=== PATIENT | female | born 1970 | race Caucasian/White ===

== ENCOUNTER 2018-02-15 17:17 | Inpatient (IN) | payer SELFPAY ==
[2018-02-15] MEDS ORDERED: Haloperidol TAB* 5 MG PO ONE (17:28)
[2018-02-15] MEDS ORDERED: LORazepam TAB(*) 1 MG PO ONE (17:28)
[2018-02-15 17:54] LABS: ABS Basophils 0 10^3/ul (0-0.2); ABS Eosinophils 0.1 10^3/ul (0-0.6); ABS Lymphocytes 1.2 10^3/ul (1.0-4.8); ABS Monocytes 0.5 10^3/ul (0-0.8); ABS Neutrophils 5.3 10^3/ul (1.5-7.7); ABS Nucleated RBC 0 10^3/ul; Eosinophil % 1.5 % (0-6); Hematocrit 44 % (35-47); Hemoglobin 14.8 g/dl (12.0-16.0); Lymphocyte % 16.8 % (25-47); Mean Corpuscular HGB Conc 34 g/dl (31-36); Mean Corpuscular Hemoglobin 30 pg (27-31); Mean Corpuscular Volume 88 fL (80-97); Mean Platelet Volume 9.2 um3 (7.4-10.4); Nucleated Red Blood Cells % 0.1; Platelet Count 194 10^3/ul (150-450); Red Blood Count 4.99 10^6/ul (4.0-5.4); Red Cell Distribution Width 14 % (10.5-15); White Blood Count 7.2 10^3/ul (3.5-10.8)
[2018-02-15] MEDS ORDERED: Haloperidol TAB* 5 MG ONE (17:54)
[2018-02-15] MEDS ORDERED: LORazepam TAB(*) 1 MG ONE (17:54)
[2018-02-15 18:10] LABS: EGFR Non-African American 64.1 (>60)
[2018-02-15 18:38] LABS: Urine Appearance Clear; Urine Blood 1+ (Negative); Urine Color Yellow; Urine Ketones Trace (Negative); Urine Protein Negative (Negative); Urine Urobilinogen Negative (Negative)
--- NOTE | 2018-02-16 06:48 | ED ---
Sugey Mesa Thomas, scribed for Yanira Bustos MD on 02/16/18 at 0637 . Progress - Progress Note Progress Note: The patient is a sign out from Dr. Cervantes awaiting re-evaluation in the morning. Course/Dx - Course Course Of Treatment: The patient is signed out to Dr. Olivier in the morning, awaiting re-evaluation. - Diagnoses Provider Diagnoses: Bipolar I disorder with chris Discharge - Sign-Out/Discharge Documenting (check all that apply): Sign-Out Patient, Receiving Sign-Out Signing out patient TO: Erick Olivier Receiving patient FROM: Alexander Cervantes - Discharge Plan Condition: Stable Referrals: Non Staff,Doctor [Primary Care Provider] - The documentation as recorded by the Sugey monroy Thomas accurately reflects the service I personally performed and the decisions made by Akash maciel Abdul, MD.
--- NOTE | 2018-02-16 07:43 | PN ---
ED Flex Patient Progress Note Date of Service: 02/15/18 Subjective: This is a 47 year-old F who is pending admission to [facility] / transfer to another psychiatric facility / discharge to home / or being observed secondary to manic behavior. Pt. examined at 0710. She is resting comfortably. She had an uneventful night. She will be re-evaluated by this morning. Objective: Vitals: Most recent vital signs documented below. General NAD, Alert and oriented x3. Laboratory: Current laboratory results documented below. Assessment: Pending evaluation. Plan: Pending psychiatric or medical consultation to observe / transfer / admit / discharge will follow up daily . Vital Signs Temp Pulse Resp BP Pulse Ox 98.2 F 80 16 123/75 98 02/16/18 06:45 02/16/18 06:45 02/16/18 06:45 02/16/18 06:45 02/16/18 06:45 Lab Results - Entire Visit 02/15/18 02/15/18 02/15/18 18:27 18:23 17:42 WBC RBC Hgb Hct MCV MCH MCHC RDW Plt Count MPV Neut % (Auto) Lymph % (Auto) [place] % (Auto) Eos % (Auto) Baso % (Auto) Absolute Neuts (auto) Absolute Lymphs (auto) Absolute Monos (auto) Absolute Eos (auto) Absolute Basos (auto) Absolute Nucleated RBC Nucleated RBC % Sodium 137 L Potassium 3.7 Chloride 101 Carbon Dioxide 27 Anion Gap 9 BUN 11 Creatinine 0.94 Est GFR ( Amer) 82.4 Est GFR (Non-Af Amer) 64.1 BUN/Creatinine Ratio 11.7 Glucose 104 H Calcium 9.0 Total Bilirubin 0.80 AST 15 ALT 13 Alkaline Phosphatase 65 Total Protein 7.5 Albumin 4.3 Globulin 3.2 Albumin/Globulin Ratio 1.3 TSH 3.46 Urine Color Yellow Urine Appearance Clear Urine pH 6.0 Ur Specific [place] 1.010 Urine Protein Negative Urine Ketones Trace A Urine Blood 1+ A Urine Nitrate Negative Urine Bilirubin Negative Urine Urobilinogen Negative Ur Leukocyte Esterase Negative Urine WBC (Auto) Trace(0-5/hpf) Urine RBC (Auto) Absent Ur Squamous Epith Cells Present A Urine Bacteria Absent Urine Glucose Negative Salicylates < 2.50 Urine Opiates Screen None detected Acetaminophen < 15 Ur Barbiturates Screen None detected Ur Phencyclidine Scrn None detected Ur Amphetamines Screen None detected U Benzodiazepines Scrn None detected Urine Cocaine Screen None detected U Cannabinoids Screen None detected Serum Alcohol < 10 02/15/18 17:42 WBC 7.2 RBC 4.99 Hgb 14.8 Hct 44 MCV 88 MCH 30 MCHC 34 RDW 14 Plt Count 194 MPV 9.2 Neut % (Auto) 74.4 Lymph % (Auto) 16.8 L [place] % (Auto) 6.8 Eos % (Auto) 1.5 Baso % (Auto) 0.5 Absolute Neuts (auto) 5.3 Absolute Lymphs (auto) 1.2 Absolute Monos (auto) 0.5 Absolute Eos (auto) 0.1 Absolute Basos (auto) 0 Absolute Nucleated RBC 0 Nucleated RBC % 0.1 Sodium Potassium Chloride Carbon Dioxide Anion Gap BUN Creatinine Est GFR ( Amer) Est GFR (Non-Af Amer) BUN/Creatinine Ratio Glucose Calcium Total Bilirubin AST ALT Alkaline Phosphatase Total Protein Albumin Globulin Albumin/Globulin Ratio TSH Urine Color Urine Appearance Urine pH Ur Specific [place] Urine Protein Urine Ketones Urine Blood Urine Nitrate Urine Bilirubin Urine Urobilinogen Ur Leukocyte Esterase Urine WBC (Auto) Urine RBC (Auto) Ur Squamous Epith Cells Urine Bacteria Urine Glucose Salicylates Urine Opiates Screen Acetaminophen Ur Barbiturates Screen Ur Phencyclidine Scrn Ur Amphetamines Screen U Benzodiazepines Scrn Urine Cocaine Screen U Cannabinoids Screen Serum Alcohol
--- NOTE | 2018-02-16 13:28 | ED ---
Izaiah Mesa Angela, scribed for Erick Olivier MD on 02/16/18 at 0713 . Progress - Progress Note Progress Note: The patient was signed out from Dr. Bustos, pending disposition, awaiting MHE. Pt was evaluated by the mental health parts delivery driver and her case was reviewed by the psychiatrist. Pt will be admitted involuntarily to [facility] with a diagnosis of unspecified psychotic episode. She is admitted to inpatient mental health in voluntarily. Paperwork was filled out. Course/Dx - Diagnoses Provider Diagnoses: Psychotic episode, Psychosis Discharge - Sign-Out/Discharge Documenting (check all that apply): Discharge/Admit/Transfer - Admit, Receiving Sign-Out Receiving patient FROM: Yanira Bustos - Discharge Plan Condition: Stable Disposition: [facility]IATRIC FACILITY-[facility] [place] Referrals: Non Staff,Doctor [Primary Care Provider] - - Billing Disposition and Condition Condition: STABLE Disposition: [facility] The documentation as recorded by the Izaiah mnoroy Angela accurately reflects the service I personally performed and the decisions made by , Erick Olivier MD.
[2018-02-16] MEDS ORDERED: Al Hydrox/Mg Hydrox/Simet LIQ* 30 ML UDC PO PRN (15:24)
[2018-02-16] MEDS ORDERED: Cyclobenzaprine TAB* 10 MG PO PRN (17:03)
[2018-02-16] MEDS: ValACYclovir (*) 1 GM TAB PO SCH (20:53)
[2018-02-16] MEDS ORDERED: traZODone TAB* 100 MG PO SCH (21:00)
[2018-02-17] MEDS ORDERED: Sertraline* 100 MG TAB PO SCH (09:00)
[2018-02-17] MEDS: Acetaminophen TAB* 325 MG PO PRN ×2 (09:03→14:18)
[2018-02-17] MEDS: Vitamin THERAPEUTIC TAB PO SCH (09:03)
[2018-02-17] MEDS: ValACYclovir (*) 1 GM TAB PO SCH ×2 (09:05→20:43)
--- NOTE | 2018-02-17 11:03 | HP ---
H&P (Free Text) History and Physical: Psychiatric Attending History and Physical NAME:Juany Bahena : 1970 AGE: 47 PROVIDER: Noel Small D.O. DATE OF ADMISSION: 02/17/2018 JUSTIFICATION FOR ADMISSION: [facility] Staff called EMT and requested patient be brought to the hospital for mental health evaluation. patient was supposed to check out after 5 days and extended her stay. She was increasingly agitated over a 48hour period, exhibiting signs of chris as well as disorganized and bizarre behaivors. She became verbally agressive with staff, making constant phone calls to the front desk agent with unusual requests such as moving the furniture in her room. Patient is gravely disabled and requires inpatient psychiatric care for stabalization and treatment. as she could represent danger to self in the community if left untreated. 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 She arrived one week ago. the assignment was supposed to be 5 days. Patient completed the assigment and was supposed to check out and return to [place]. Instead she extended her [facility] stay in order to catch up on sleep because she didnt feel safe to drive home. Over the course of 2 days patient was displaying diorganized and bizarre behaviors including requests to move furniture in and out of her room, rapid shifts in mood from laughing to crying, divulging a large amount of personal information to staff who barely knew her. Patient's room was in considerable disarray and the amount of personal belongings present in the room was more than would normally be exprected for short term assigment. staff alerteded assisted living manager at [facility] who went to check on patient. She was highly agitated and was using profanity and was preoccupied with her inability to sleep [facility] the exact room environment which she required in order to sleep. Patient reports that upon arriving one week ago she had onset of manic symptoms including nightly insomnia of 3 hours per night, psychomotor agitation, increased goal directed activity, excessive anxiety. She further related to me that this is her fourth such episode of behavioral/ mood disturbance. They always occurr when she istravelling for work and is under stress. subsequently she develops insomnia, excessive talking, racing thoughts, increased goal directed activity, disorganized thoughts, inflated self esteem and marked euphoria/irritability. She further describes periods of depression which tyically last for a few days during which she isolates, has low motivation, remains in bed all day reading. she denies history of SI but then tells me "sometimes when Im depressed I wish everything would just go away". PAST PSYCHIATRIC HISTORY: reports two episodes of chris in 2011 and 2013 which were short lived and which she recovered on her own. In 2014 or 2015 she was hospitalized while on a work assigment in [place]. At the time she remembers having grandiose delusions which she acknowledges were not based in reality. She was told she was Bipolar and discharged on [place]. subsequently, she has been followed by psychiatrist Dr. Tyrel Lu. whom she sees infrequently. one to two weeks after discharge from the hospital, the lithium was discontinued by Dr. Lu. as he did not believe that she had bipolar disorder. no history of self injury. no history of suicide attempt. denies history of suicidal ideation currently or in recent past. Has been taking Zoloft 100 mg daily as prescribed by her PCP for premenstrual dysphoric disorder for many years. SUBSTANCE ABUSE HISTORY: denies any past or current substance use or abuse PAST MEDICAL HISTORY: reports history of Lichen Planus, back pain for which she takes Flexeril CURRENT MEDICATIONS: Cyclobenzaprine TAB* [Flexeril 10 MG TAB*] 10 mg PO BID PRN 02/15/18 [History Confirmed 02/15/18] Fexofenadine (NF) [Deisi 180 (NF)] 180 mg PO DAILY 02/15/18 [History Confirmed 02/15/18] ValACYclovir (*) [Valtrex 1 GM(*)] 2 gm PO BID 02/15/18 [History Confirmed 02/15] ALLERGIES: NKDA FAMILY PSYCHIATRIC HISTORY: per patient paternal GM alcoholic, father depressed but never diagnosed or treated. FAMILY/PSYCHOSOCIAL HISTORY: Parents raised patient had her two brothers in where she graduated High school. Graduated from [employer] with high honors. younger brother of stroke a few y ears ago. He was young and whole family remains traumatized. Older brother lives with parents who own home in [place]. 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 Patient is single and has no children. REVIEW OF SYSTEMS: non contributory Vital signs Vital Signs: Temp Pulse Resp BP Pulse Ox 98.9 F 95 16 119/63 100 02/17/18 07:27 02/17/18 07:27 02/17/18 12:02 02/17/18 07:27 02/17/18 07:27 PHYSICAL EXAMINATION: Skin: warm, dry, reflects adequate perfusion, no exanthem Head: atraumatic Neck: supple, non-tender, no cervical or submandibular adenopathy, no bruits, no masses no evidence of goiter, Eyes: EOMI, ADEOLA, conjunctiva without injection ENT: no nasal discharge, TM's w/o injection, pharynx without exudate or injection, no tonsillar hypertrophy, mucous membranes moist. no evidence of oral lesions Respiratory: CTA bilaterally without expiratory wheezing, no rhonchi, no retractions visible Cardiovascular: RRR normal s1 and s2. radial, brachoradialis, dorsalis pedis pulses symmetic 5+/5 bilaterally Abdomen: soft non tender, normoactive bowel sound present in all quadrants, no HSM, no palpable masses Musculoskeletal: full range of motions in all extremities, no evidence of spinal curvature Lymph: no axillary lypmphadenopathy Neuro: CN 2 to 12 intact, no sensory deficits, motor 5+/5 in upper and lower extremites, bilaterally symmetric no cerebellar signs, normal gait, no tremor MENTAL STATUS EXAMINATION: 47 yo female. patient is indisciminantly related. prior to this interview I observed her in group and she was complimenting other patients in group and asking them for advise despite no prior contact with any of these individuals. patient was observed to be excessively talkative, pressured, and had considerable difficulty self regulating. Thought process reveals racing thoughts, over inclusiveness, circumstantialty. Patient was unable to give short answers but instead would give a detailed resposne to questions. freqently she went off topic and had to be brought back. Thought content: patient is preoccupied with her work , explaining the details of her work and clearly has inflated self concept, perseverated about the topic of her work and was difficult to interrupt. mood is clearly irritable and euphoric. affect is labile with change in mood from crying to euphoric often abruptly. no evidence of delusions. denies AH,VH. denies SI, HI. alert and fully oriented. she is clearly distractible. insight fair to poor. she doesn't really recognize and ackowledge that she has recurrent mood symptoms. she prefers to view her episodes as stress induced or sleep deprivation induced. She impresses me as having marked comorbid anxiety with neurotic conflicts. LABORATORY DATA: Laboratory Results - last 24 hr 02/17/18 02/17/18 06:51 06:51 Hemoglobin A1c 5.2 Triglycerides 110 Cholesterol 214 LDL Cholesterol 127 HDL Cholesterol 64.6 Laboratory Last Values WBC 7.2 10^3/ul (3.5-10.8) 02/15/18 17:42 RBC 4.99 10^6/ul (4.0-5.4) 02/15/18 17:42 Hgb 14.8 g/dl (12.0-16.0) 02/15/18 17:42 Hct 44 % (35-47) 02/15/18 17:42 MCV 88 fL (80-97) 02/15/18 17:42 MCH 30 pg (27-31) 02/15/18 17:42 MCHC 34 g/dl (31-36) 02/15/18 17:42 RDW 14 % (10.5-15) 02/15/18 17:42 Plt Count 194 10^3/ul (150-450) 02/15/18 17:42 MPV 9.2 um3 (7.4-10.4) 02/15/18 17:42 Neut % (Auto) 74.4 % (38-83) 02/15/18 17:42 Lymph % (Auto) 16.8 % (25-47) L 02/15/18 17:42 [place] % (Auto) 6.8 % (0-7) 02/15/18 17:42 Eos % (Auto) 1.5 % (0-6) 02/15/18 17:42 Baso % (Auto) 0.5 % (0-2) 02/15/18 17:42 Absolute Neuts (auto) 5.3 10^3/ul (1.5-7.7) 02/15/18 17:42 Absolute Lymphs (auto) 1.2 10^3/ul (1.0-4.8) 02/15/18 17:42 Absolute Monos (auto) 0.5 10^3/ul (0-0.8) 02/15/18 17:42 Absolute Eos (auto) 0.1 10^3/ul (0-0.6) 02/15/18 17:42 Absolute Basos (auto) 0 10^3/ul (0-0.2) 02/15/18 17:42 Absolute Nucleated RBC 0 10^3/ul 02/15/18 17:42 Nucleated RBC % 0.1 02/15/18 17:42 Sodium 137 mmol/L (139-145) L 02/15/18 17:42 Potassium 3.7 mmol/L (3.5-5.0) 02/15/18 17:42 Chloride 101 mmol/L (101-111) 02/15/18 17:42 Carbon Dioxide 27 mmol/L (22-32) 02/15/18 17:42 Anion Gap 9 mmol/L (2-11) 02/15/18 17:42 BUN 11 mg/dL (6-24) 02/15/18 17:42 Creatinine 0.94 mg/dL (0.51-0.95) 02/15/18 17:42 Est GFR ( Amer) 82.4 (>60) 02/15/18 17:42 Est GFR (Non-Af Amer) 64.1 (>60) 02/15/18 17:42 BUN/Creatinine Ratio 11.7 (8-20) 02/15/18 17:42 Glucose 104 mg/dL (70-100) H 02/15/18 17:42 Hemoglobin A1c 5.2 % (4.0-5.6) 02/17/18 06:51 Calcium 9.0 mg/dL (8.6-10.3) 02/15/18 17:42 Total Bilirubin 0.80 mg/dL (0.2-1.0) 02/15/18 17:42 AST 15 U/L (13-39) 02/15/18 17:42 ALT 13 U/L (7-52) 02/15/18 17:42 Alkaline Phosphatase 65 U/L (34-104) 02/15/18 17:42 Total Protein 7.5 g/dL (6.4-8.9) 02/15/18 17:42 Albumin 4.3 g/dL (3.2-5.2) 02/15/18 17:42 Globulin 3.2 g/dL (2-4) 02/15/18 17:42 Albumin/Globulin Ratio 1.3 (1-3) 02/15/18 17:42 Triglycerides 110 mg/dL 02/17/18 06:51 Cholesterol 214 mg/dL 02/17/18 06:51 LDL Cholesterol 127 mg/dL 02/17/18 06:51 HDL Cholesterol 64.6 mg/dL 02/17/18 06:51 TSH 3.46 mcIU/mL (0.34-5.60) 02/15/18 17:42 Urine Color Yellow 02/15/18 18: Urine Appearance Clear 02/15/18 18: Urine pH 6.0 (5-9) 02/15/18 18: Ur Specific [place] 1.010 (1.010-1.030) 02/15/18 18: Urine Protein Negative (Negative) 02/15/18 18: Urine Ketones Trace (Negative) A 02/15/18 18: Urine Blood 1+ (Negative) A 02/15/18 18: Urine Nitrate Negative (Negative) 02/15/18 18: Urine Bilirubin Negative (Negative) 02/15/18 18: Urine Urobilinogen Negative (Negative) 02/15/18 18: Ur Leukocyte Esterase Negative (Negative) 02/15/18 18: Urine WBC (Auto) Trace(0-5/hpf) (Absent) 02/15/18 18:27 Urine RBC (Auto) Absent (Absent) 02/15/18 18: Ur Squamous Epith Cells Present (Absent) A 02/15/18 18: Urine Bacteria Absent (Absent) 02/15/18 18: Urine Glucose Negative (Negative) 02/15/18 18: Salicylates < 2.50 mg/dL (<30) 02/15/18 17:42 Urine Opiates Screen None detected (None Detect) 02/15/18 18:23 Acetaminophen < 15 mcg/mL 05/01/18 17:42 Ur Barbiturates Screen None detected (None Detect) 02/15/18 18:23 Ur Phencyclidine Scrn None detected (None Detect) 02/15/18 18:23 Ur Amphetamines Screen None detected (None Detect) 02/15/18 18:23 U Benzodiazepines Scrn None detected (None Detect) 02/15/18 18:23 Urine Cocaine Screen None detected (None Detect) 02/15/18 18:23 U Cannabinoids Screen None detected (None Detect) 02/15/18 18:23 Serum Alcohol < 10 mg/dL (<10) 02/15/18 17:42 IMPRESSION: 47 yo woman with history of recurrent hypomanic/manic episodes with onset over past 6 years. Patient reports she has had four episodes. first two were short lived lasting days. third episode was 2 years ago and meets criteria for manic episode. pateint was hospitalized in [place] with diagnosis of bipolar chris and discharged on lithiuim which she only took for two weeks as it was stopped by outpatient psychiatrist who did not believe she was bipolar. This would be patient's fourth episode. all episodes have occurred while patient is travelling for work and under fair amount of stress. patient has history of short lived depressive episodes which do not appear to meet criteria for major depressive episodes. patient's history oand mental status are consistent with manic episode. she was acting bizarrely and highly agitated in the community necessitating transfer to the hospital where she was deemed gravely disabled and admitted on an involuntary status for further treatment and stabalization DIAGNOSES: Bipolar disorder unspecified currently manic without psychotic features. PLAN: patient will be admitted to [facility] and placed on q 15 min observation status initially it will be important to get collateral history from patient's family members including her mother and brother. I cheri contact Dr. Tyrel Lu to coordinate treatment and get medical background. MMPI and psyc. evaluation requested. group social worker evaluation also requested. Patent gave informed consent to treatment with the medicaiton karen to target acute chris and maintenance treatment of bipolar disorder. Ativan 2 mg po QHS for insomnia. lower trazodone to 50 mg qhs, patient will likely benefitt from intensive outpaient drug rehab program. will review her labs and check TFT's
[2018-02-17] MEDS ORDERED: ARIPiprazole TAB* 5 MG PO ONE (14:56)
[2018-02-17] MEDS: Clobetasol 0.05% OINT* 30 GM TUBE TOPICAL SCH (20:47)
[2018-02-17] MEDS ORDERED: traZODone TAB* 50 MG TAB PO SCH (21:00)
[2018-02-17] MEDS ORDERED: LORazepam TAB(*) 1 MG PO SCH (21:00)
[2018-02-18] MEDS: Cyclobenzaprine TAB* 10 MG PO PRN (02:25)
[2018-02-18] MEDS: Acetaminophen TAB* 325 MG PO PRN ×2 (03:00→20:51)
[2018-02-18] MEDS ORDERED: ARIPiprazole TAB* 5 MG PO SCH (09:00)
[2018-02-18] MEDS: Sertraline* 50 MG TAB PO SCH (09:08)
[2018-02-18] MEDS: Vitamin THERAPEUTIC TAB PO SCH (09:08)
[2018-02-18] MEDS: ValACYclovir (*) 1 GM TAB PO SCH ×2 (09:09→22:11)
[2018-02-18] MEDS: Clobetasol 0.05% OINT* 30 GM TUBE TOPICAL SCH ×2 (10:43→22:11)
--- NOTE | 2018-02-18 12:42 | PN ---
Subjective - Subjective Subjective: Psychiatric Progress note: slept 5 to 6 hours last night. patient continues to exhibit moderate chris including increased amount of and pressured speech, is difficult to interrupt, racing thoughts, overinclusive, tangential and circumferential thought process, unstable mood vacillating between irritable and elevated. spent 30 minutes interviewing patient and she was becoming increasingly overinclusive, going off on tangents incluidng discussing the details of her family history. I was able to redirect her back to a discussion of the issues which brought about need for her hospitalization She is clearly bright and well educated and she was able to accept diagnosis of bipolar disorder and has insight about her manic behavior. In discussing her medication she became quite upset over the changes which I made We finally were able to agree on a medication plan that was to her liking. She gave informed consent to increase Abilfy and to taper zoloft but was insistent that her Trazodone be put back at 100 mg qhs. I confronted her about refusal of Ativan last night. she finally agreed to take it as a prn for sleep. I strongly encouraged her to take the 2 mg ativan nightly as sleep is vital to more rapid recovery from chris. Patient did share that she felt patient-psychiatrist fit was not great. she prefers to meet with public health social worker. I explained that Margaux will continue to see her and that I will request Dr. Giordano assign a different prescriber to work with her. Also shared that she would meet with over the weekend. Impression: 47 yo with bipolar chris admitted yesterday. Patient continues to exhibit symptoms consistent with chris. She is not psyhotic. She is highly obsession, labile, anxious, and duration of sleep remains suboptimal due to non adherance with night time medication Plan: increase abilify to 15 mg daily and change to qhs as patient reports it is making her tired (no evidence that she has been lethargic per nursing) zoloft 50 mg daily for now. and will taper and d/c afterweekend. Trazodone 100 mg qhs (patient is resistant to tapering this medication) Ativan 2 mg QHS prn. patient should be encouraged to take this medication as she needs several days of 12 hours sleep per night for chris to remit. Dr. Duplan to see patient over weekend and to reassign patient to new prescriber starting on wednesday New provider should contact patient's outpatient psychiatrist Dr. Lu for coordination of care at [phone]. Plan - Plan Treatment Plan: Name: NATY FIGUEROA Birthdate: 1970 [id number] Medications: Current Medications Acetaminophen (Tylenol Tab*) 650 mg PO Q4H PRN PRN Reason: PAIN or TEMP > 101 F Last Admin: 02/18/18 03:00 Dose: 650 mg Al Hydrox/Mg Hydrox/Simethicone (Maalox Plus*) 30 ml PO Q4H PRN PRN Reason: INDIGESTION Aripiprazole (Abilify Tab*) 10 mg PO DAILY [facility] Last Admin: 02/18/18 09:04 Dose: Not Given Clobetasol Propionate (Clobetasol 0.05% Oint*) 1 applic TOPICAL BID [facility] Last Admin: 02/18/18 10:43 Dose: Not Given Cyclobenzaprine HCl (Flexeril Tab*) 5 mg PO BID PRN PRN Reason: SPASMS Last Admin: 02/18/18 02:25 Dose: 5 mg Lorazepam (Ativan Tab(*)) 0.5 mg PO Q4H PRN PRN Reason: ANXIETY Lorazepam (Ativan Tab(*)) 2 mg PO BEDTIME [facility] Last Admin: 02/17/18 20:45 Dose: Not Given Multivitamins (Theragran Tab*) 1 tab PO DAILY [facility] Last Admin: 02/18/18 09:08 Dose: 1 tab Sertraline HCl (Zoloft*) 50 mg PO DAILY JENNY Last Admin: 02/18/18 09:08 Dose: 50 mg Trazodone HCl (Desyrel Tab*) 50 mg PO BEDTIME JENNY Last Admin: 02/17/18 20:37 Dose: 50 mg Valacyclovir HCl (Valtrex 1 Gm(*)) 2 gm PO BID JENNY PRN Reason: Protocol Last Admin: 02/18/18 09:09 Dose: Not Given
[2018-02-18] MEDS: traZODone TAB* 50 MG TAB PO SCH (20:48)
[2018-02-19] MEDS: LORazepam TAB(*) 0.5 MG PO PRN ×2 (04:55→20:36)
[2018-02-19] MEDS: Vitamin THERAPEUTIC TAB PO SCH (08:31)
[2018-02-19] MEDS: Clobetasol 0.05% OINT* 30 GM TUBE TOPICAL SCH ×2 (08:31→20:42)
[2018-02-19] MEDS: Sertraline* 50 MG TAB PO SCH (08:31)
[2018-02-19] MEDS: ValACYclovir (*) 1 GM TAB PO SCH ×2 (09:22→20:43)
[2018-02-19] MEDS: Cyclobenzaprine TAB* 10 MG PO PRN (13:04)
[2018-02-19] MEDS: Acetaminophen TAB* 325 MG PO PRN (13:05)
--- NOTE | 2018-02-19 15:38 | PN ---
Subjective - Subjective Date of Service: 02/19/18 Subjective: Naty endorses improvements in sleep and mood, absence of suicidal ideation or side effects from prescribed medications. She is eager to discuss discharge on Wednesday as she feels that she is returning to her baseline. Per staff, she has been adherent to unit's routines. Objective - Appearance Appearance: Healthy Appearing Dysmorphic Features: No Hygiene: Normal Grooming: Well Kept - Behavior Psychomotor Activities: Normal Exhibits Abnormal Movement: No - Attitude and Relatedness Attitude and Relatedness: Cooperative Eye Contact: Fair - Speech Quality: Unpressured Latencies: Normal Quantity: Appropriate - Mood Patient's Decription of Mood: better - Affect Observed Affect: Non-labile Affect Consistent with: Euthymia - Thought Process Patient's Thought Process: Coherent, Goal Directed Thought Content: No Passive Wish, No Suicidal Planning, No Homicidal Ideation, No Paranoid Ideation - Sensorium Experiencing Hallucinations: No, Sensorium is Clear - Level of Consciousness Level of Consciousness: Alert Orientation: Yes Intact - Impulse Control Impulse Control: Intact - Insight and Judgement Insight and Judgement: Fair - Group Participation Particating in Group Activities: Yes - Medication Management Medication Management Adherence: Yes Assessment - Assessment Inpatient DSM-V Dx: F31.10 Clinical Impression: Resolving chris, tolerating new trials of Abilify and Lorazepam and continuation of Trazodone and Sertraline. She needs continued admission fort stabilization. Plan - Plan Treatment Plan: Name: NATY FIGUEROA Birthdate: 1970 [id number] Continued Medication Management: Continue Outpt Medication Medications: Current Medications Acetaminophen (Tylenol Tab*) 650 mg PO Q4H PRN PRN Reason: PAIN or TEMP > 101 F Last Admin: 02/19/18 13:05 Dose: 650 mg Al Hydrox/Mg Hydrox/Simethicone (Maalox Plus*) 30 ml PO Q4H PRN PRN Reason: INDIGESTION Aripiprazole (Abilify Tab*) 15 mg PO BEDTIME JENNY Clobetasol Propionate (Clobetasol 0.05% Oint*) 1 applic TOPICAL BID JENNY Last Admin: 02/19/18 08:31 Dose: 1 applic Cyclobenzaprine HCl (Flexeril Tab*) 5 mg PO BID PRN PRN Reason: SPASMS Last Admin: 02/19/18 13:04 Dose: 5 mg Lorazepam (Ativan Tab(*)) 0.5 mg PO Q4H PRN PRN Reason: ANXIETY Last Admin: 02/19/18 04:55 Dose: 0.5 mg Lorazepam (Ativan Tab(*)) 2 mg PO BEDTIME PRN PRN Reason: insomnia/agitation Multivitamins (Theragran Tab*) 1 tab PO DAILY JENNY Last Admin: 02/19/18 08:31 Dose: 1 tab Sertraline HCl (Zoloft*) 50 mg PO DAILY JENNY Last Admin: 02/19/18 08:31 Dose: 50 mg Trazodone HCl (Desyrel Tab*) 100 mg PO BEDTIME JENNY Last Admin: 02/18/18 20:48 Dose: 100 mg Valacyclovir HCl (Valtrex 1 Gm(*)) 2 gm PO BID JENNY PRN Reason: Protocol Last Admin: 02/19/18 09:22 Dose: Not Given - Discharge Plan Discharge Plan: Outpatient Follow Up Outpatient Program: Private Clinician(s)
[2018-02-19] MEDS: traZODone TAB* 50 MG TAB PO SCH (20:36)
[2018-02-19] MEDS: ARIPiprazole TAB* 15 MG PO SCH (20:36)
[2018-02-20] MEDS: LORazepam TAB(*) 0.5 MG PO PRN (03:49)
[2018-02-20] MEDS: Sertraline* 50 MG TAB PO SCH (09:24)
[2018-02-20] MEDS: Vitamin THERAPEUTIC TAB PO SCH (09:24)
[2018-02-20] MEDS: ValACYclovir (*) 1 GM TAB PO SCH ×2 (09:24→20:45)
[2018-02-20] MEDS: Clobetasol 0.05% OINT* 30 GM TUBE TOPICAL SCH ×2 (09:25→20:45)
[2018-02-20] MEDS: Acetaminophen TAB* 325 MG PO PRN (09:26)
[2018-02-20] MEDS: traZODone TAB* 50 MG TAB PO SCH (20:44)
[2018-02-20] MEDS: ARIPiprazole TAB* 15 MG PO SCH (20:45)
[2018-02-20] MEDS: LORazepam TAB(*) 1 MG PO PRN (20:46)
[2018-02-21] MEDS: Vitamin THERAPEUTIC TAB PO SCH (08:09)
[2018-02-21] MEDS: Sertraline* 50 MG TAB PO SCH (08:09)
[2018-02-21] MEDS: Clobetasol 0.05% OINT* 30 GM TUBE TOPICAL SCH ×2 (08:10→21:09)
[2018-02-21] MEDS: ValACYclovir (*) 1 GM TAB PO SCH ×2 (08:10→21:09)
--- NOTE | 2018-02-21 15:30 | PN ---
Subjective - Subjective Date of Service: 02/21/18 Service Type: 93632 Hosp care 35 min high complexity Subjective: Naty is talkative and pleasant, a little hyperverbal and tangential. She would like to be discharged. We brainstorm some ideas for how to remain safe in the future and determine what medications might be best for her. Objective - Appearance Appearance: Healthy Appearing Dysmorphic Features: No Hygiene: Normal Grooming: Well Kept - Behavior Psychomotor Activities: Normal Exhibits Abnormal Movement: No - Attitude and Relatedness Attitude and Relatedness: Well Related Eye Contact: Good - Speech Quality: Unpressured Latencies: Normal Quantity: Copious - Mood Patient's Decription of Mood: "Good" - Affect Observed Affect: Expansive Affect Consistent with: Euthymia - Thought Process Patient's Thought Process: Tangential Thought Content: No Passive Wish, No Suicidal Planning, No Homicidal Ideation, No Paranoid Ideation - Sensorium Experiencing Hallucinations: No, Sensorium is Clear Type of Hallucinations: Visual: No, Auditory: No, Command: No - Level of Consciousness Level of Consciousness: Alert Orientation: Yes Intact, Yes Orientated to Time, Yes Orientated to Place, Yes Orientated to Person - Impulse Control Impulse Control: Intact - Insight and Judgement Insight and Judgement: Good - Group Participation Particating in Group Activities: Yes - Medication Management Medication Management Adherence: Yes - Additional Observations Comments: Naty is pleasant in conversation. While her speech is rapid, I would not characterize it as pressured. She does go from one topic to the next fluidly, but can return to the topic at hand with minimal redirection. Assessment - Assessment Merits Inpatient Hospitalization: For Stabilization Inpatient DSM-V Dx: F31.10 Clinical Impression: Naty has bipolar disorder. She becomes manic when she is under pressure and does not have enough sleep. She states she needs a "handler" or an assistant professor to help her with the things she is doing, as her job is high pressure and has her doing too many things. Plan - Plan Treatment Plan: Name: NATY FIGUEROA Birthdate: 1970 [id number] Medications: Current Medications Acetaminophen (Tylenol Tab*) 650 mg PO Q4H PRN PRN Reason: PAIN or TEMP > 101 F Last Admin: 02/20/18 09:26 Dose: 650 mg Al Hydrox/Mg Hydrox/Simethicone (Maalox Plus*) 30 ml PO Q4H PRN PRN Reason: INDIGESTION Aripiprazole (Abilify Tab*) 15 mg PO BEDTIME [facility] Last Admin: 02/20/18 20:45 Dose: 15 mg Clobetasol Propionate (Clobetasol 0.05% Oint*) 1 applic TOPICAL BID [facility] Last Admin: 02/21/18 08:10 Dose: Not Given Cyclobenzaprine HCl (Flexeril Tab*) 5 mg PO BID PRN PRN Reason: SPASMS Last Admin: 02/19/18 13:04 Dose: 5 mg Lorazepam (Ativan Tab(*)) 0.5 mg PO Q4H PRN PRN Reason: ANXIETY Last Admin: 02/20/18 03:49 Dose: 0.5 mg Lorazepam (Ativan Tab(*)) 2 mg PO BEDTIME PRN PRN Reason: insomnia/agitation Last Admin: 02/20/18 20:46 Dose: 2 mg Multivitamins (Theragran Tab*) 1 tab PO DAILY [facility] Last Admin: 02/21/18 08:09 Dose: 1 tab Sertraline HCl (Zoloft*) 50 mg PO DAILY [facility] Last Admin: 02/21/18 08:09 Dose: 50 mg Trazodone HCl (Desyrel Tab*) 100 mg PO BEDTIME [facility] Last Admin: 02/20/18 20:44 Dose: 100 mg Valacyclovir HCl (Valtrex 1 Gm(*)) 2 gm PO BID JENNY PRN Reason: Protocol Last Admin: 02/21/18 08:10 Dose: Not Given - Discharge Plan Discharge Plan: Outpatient Follow Up Additional Comments: Naty will be discharged on 02/22/18. She will be given medication to follow up for 30 days. She will be given 10 days of lorazepam 2 mg for emergency situations when she cannot sleep.
[2018-02-21] MEDS: LORazepam TAB(*) 0.5 MG PO PRN (20:51)
[2018-02-21] MEDS: ARIPiprazole TAB* 15 MG PO SCH (20:51)
[2018-02-21] MEDS: traZODone TAB* 50 MG TAB PO SCH (20:52)
[2018-02-21] MEDS: LORazepam TAB(*) 1 MG PO PRN (20:58)
[2018-02-21] MEDS: Acetaminophen TAB* 325 MG PO PRN (21:52)
[2018-02-22] MEDS: Cyclobenzaprine TAB* 10 MG PO PRN (06:56)
--- NOTE | 2018-02-22 08:46 | ED ---
Carlos Mesa Jennifer, scribed for Alexander Cervantes MD on 02/15/18 at 1740 . Psychiatric Complaint - HPI Summary HPI Summary: The patient is a 47 year old female who was brought in by EMS for mental health. The patient is a current guest at [facility] but is not from [place]. She was lying on the floor and making a scene at the [employer] lobby, which prompted hotel workers to call 911. The patient reports her life has been unstable. Her medications include Valacyclovir, Fexofenadine, and Flexeril. LEVEL 5 CAVEAT: HPI LIMITED DUE TO PTS PRESSURED SPEECH. - History Of Current Complaint Hx Obtained From: EMS Onset/Duration: Other - Unknown Character: Manic - Allergies/Home Medications Allergies/Adverse Reactions: Allergies Allergy/AdvReac Type Severity Reaction Status Date / Time ampicillin Allergy Unknown Verified 02/15/18 21:43 Reaction Details Home Medications: Home Medications Cyclobenzaprine TAB* [Flexeril 10 MG TAB*] 10 mg PO BID PRN 02/15/18 [History Confirmed 02/15/18] Fexofenadine (NF) [Deisi 180 (NF)] 180 mg PO DAILY 02/15/18 [History Confirmed 02/15/18] ValACYclovir (*) [Valtrex 1 GM(*)] 2 gm PO BID 02/15/18 [History Confirmed 02/15] PMH/Surg Hx/FS Hx/Imm Hx Psychiatric History: Reports: Hx Bipolar Disorder - Additional Comments History Additional Comments: LEVEL 5 CAVEAT: PMH LIMITED DUE TO PT'S PRESSURED SPEECH. Review of Systems Positive: Other - MANIC All Other Systems Reviewed And Are Negative: No - Comments Additional Review of Systems Comments: LEVEL 5 CAVEAT: ROS LIMITED DUE TO PT'S PRESSURED SPEECH. Physical Exam - Summary Physical Exam Summary: Constitutional: Well-developed, Well-nourished, Alert. (-) Distressed Skin: Warm, Dry HENT: Normocephalic; Atraumatic Eyes: Conjunctiva normal Neck: Musculoskeletal ROM normal neck. (-) JVD, (-) Stridor, (-) Tracheal deviation Cardio: Rhythm regular, rate normal, Heart sounds normal; Intact distal pulses; The pedal pulses are 2+ and symmetric. Radial pulses are 2+ and symmetric. (-) Murmur Pulmonary/Chest wall: Effort normal. (-) Respiratory distress, (-) Wheezes, (-) Rales Abd: Soft, (-) Tenderness, (-) Distension, (-) Guarding, (-) Rebound Musculoskeletal: (-) Edema Lymph: (-) Cervical adenopathy Psych: Impulsive, loud, pressured speech, delusions of grandeur, disorganized LEVEL 5 CAVEAT: PHYSICAL EXAM LIMITED DUE TO PT'S PRESSURED SPEECH. Triage Information Reviewed: Yes Vital Signs Reviewed: Yes Diagnostics - Laboratory Result Diagrams: 02/15/18 17:42 02/15/18 17:42 Lab Statement: Any lab studies that have been ordered have been reviewed, and results considered in the medical decision making process. Re-Evaluation - Re-Evaluation First Eval Re-Evaluation Time: 20:15 Change: Unchanged Comment: Pt is resting comfortable. Course/Dx - Course Course Of Treatment: The patient is a 47 year old female who was brought in by EMS for mental health. She was causing a scene at the [facility], prompting hotel staff to call 911. The patient exhibits signs of bipolar chris, including impulsivity, pressured speech, delusions of grandeur. The patient is diagnosed with bipolar chris. She is awaiting mental health evaluation. The patient will be a sign out to Dr. Bustos. I felt strongly that she needs to be admitted. However, we will wait for her to get some rest so that we can try and get more history from her. - Differential Dx/Clinical Impression Provider Diagnosis: Bipolar I disorder with chris Discharge - Sign-Out/Discharge Documenting (check all that apply): Sign-Out Patient Signing out patient TO: Yanira Bustos - Discharge Plan Referrals: Non Staff,Doctor [Primary Care Provider] - The documentation as recorded by the Carlos monroy Jennifer accurately reflects the service I personally performed and the decisions made by me, Alexander Cervantes MD.
[2018-02-22] MEDS: Sertraline* 50 MG TAB PO SCH (09:19)
[2018-02-22] MEDS: Vitamin THERAPEUTIC TAB PO SCH (09:19)
[2018-02-22 09:37] VITALS: BP 146/74
[2018-02-22] MEDS: ValACYclovir (*) 1 GM TAB PO SCH (10:10)
[2018-02-22] MEDS: Clobetasol 0.05% OINT* 30 GM TUBE TOPICAL SCH (10:10)
--- NOTE | 2018-02-23 12:24 | DS ---
DISCHARGE SUMMARY: DATE OF ADMISSION: 02/16/18 DATE OF DISCHARGE: 02/22/18 PROVIDER: Lindsay North NP in Psychiatry. SUPERVISING PHYSICIAN: Dr. Candido Giordano. DIAGNOSES: [place] I: Bipolar 1 disorder, in partial remission. [place] II: Deferred. CONDITION AT THE TIME OF DISCHARGE: Juany is improved. She is psychiatrically cleared. She is stab le. She participated in groups and was social with peers. She is agreeable to discharge. She has do ne well here psychiatrically and she has tolerated new medications well. MENTAL STATUS EXAMINATION: At the time of discharge, Juany is calm, cooperative, makes good eye cont act. Alert and oriented x3. Her grooming is excellent. Her speech pace is normal. Her thought pro cesses are logical, possibly slightly tangential. She is not psychotic, not delusional. She denies AH/VH and SI/HI. Her insight and judgment are good. She is willing to follow up and she is urged to see a therapist in addition to a psychiatrist. DISCHARGE INSTRUCTIONS TO THE PATIENT: A. Juany should continue her home medications in addition to Abilify 15 mg at bedtime, lorazepam 0.5 mg p.r.n. anxiety, and lorazepam 2 mg at bedtime in case of s evere insomnia. B. Diet is regular. C. Activities as tolerated. She is a nonsmoker. There are no studies pending at this time. D. Followup care. She has appointments with Olga [facility], and Dr. Tyrel Lu, bot h are in [place]. E: Substance abuse followup is not indicated. 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 She arrived 1 week ago. The assignment was supposed to be 5 days. Patient completed the assignment and was supposed to check out and return to [facility], instead she extended her hotel stay in order to catch up on sleep because she did not feel safe t o drive home. Over the course of 2 days, the patient was displaying disorganized and bizarre behavio rs including requesting the furniture in and out of her room, rapid shifts in mood from laughing to c rying, divulging a large amount of personal information to staff who barely knew her. Patient's room was in considerable disarray and the amount of personal belongings present in the room was more than what normally would be expected for a short-term assignment. Staff alerted the dock manager at the hotel who went to check on the patient. She was highly agitated and was using profanity and was preoccupie d with her inability to sleep, insistent that the hotel help her to create the exact room environment which she required in order to sleep. The patient reports that upon arriving 1 week ago she had an onset of manic symptoms including nightly insomnia of 3 hours per night, psychomotor agitation, incre ased goal directed activity, excessive anxiety. She further related to me that this is her 4th such episode of behavioral mood disturbance. They always occur when she is travelling for work and is und er stress. Subsequently, she develops insomnia, excessive talking, racing thoughts, increased goal d irected activities, disorganized thoughts, inflated self esteem, and marked euphoria/irritability. S he further describes periods of depression, which typically last for a few days, during which she iso lates, has low motivation, remains in bed all day, reading. She denies history of SI, but then tells me "sometimes when I am depressed I wish everything would just go away". Part B: Psychiatric treatment was rendered. The patient was admitted to adult behavioral unit and p laced on 15-minute checks for safety. She did well on the unit and went to groups. She interacted w ith peers well. She tolerated new medications well. Her chris did start to remit. She is now sligh tly and pleasantly hypomanic. Abilify 15 was started and ramped up over time. Her chris began to de crease until when she began getting significant amounts of sleep, thanks to 2 mg of lorazepam. Her f amily is both supportive and a bit strange. They seem to all have some corks to their personalities and Juany is contending with those. She is significantly improved and she will take herself home to [place] and make adjustments to her lifestyle to improve her chances of continuing with a pleasant life. LINDSAY B. HARRIS, AUTO SERVICE MECHANIC [id number]/[facility] #: [id number]
== END 2018-02-22 11:51 | disposition home or self-care (01) | DRG 885 ==
LOC: ED 17:17 → BSU 02-16 17:02
PROVIDERS: ADMIT Psychiatry & Neurology Psychiatry; ATTEND Psychiatry & Neurology Psychiatry
DX: F31.10 Bipolar disorder, current episode manic without psychotic features, unspecified (principal); M54.9 Dorsalgia, unspecified; Z79.899 Other long term (current) drug therapy; Z81.1 Family history of alcohol abuse and dependence; Z81.8 Family history of other mental and behavioral disorders; Z82.3 Family history of stroke
CPT/HCPCS: 36415; 80053; 80061; 80307; 80320; 80329; 81003; 81015; 83036; 84443; 85025; 87086; 99222; 99231; 99232; 99284; A9270-GY; G0480